=== PATIENT | female | born 1960 | race Caucasian/White ===

== ENCOUNTER 2023-02-24 15:30 | Emergency (ER) | payer SELFPAY ==
[2023-02-24 16:23] VITALS: BP 160/92; PULSE 102; RESP 18; O2SAT 96; BMI 38.9
--- NOTE | 2023-02-24 16:37 | XRR_ITS ---
PROCEDURE INFORMATION: Exam: XR Right Knee Exam date and time: 02/24/2023 4:44 PM Age: 62 years old Clinical indication: Pain; Knee; Right; Additional info: Pain/injury TECHNIQUE: Imaging protocol: Radiologic exam of the right knee. Views: 3 views. COMPARISON: No relevant prior studies available. FINDINGS: Bones/joints: No fracture or dislocation. Mild degenerative change with mild medial joint space narrowing and small tricompartment osteophytes. Soft tissues: Moderate joint effusion. XR/XR knee RT 3V* [id number] IMPRESSION: Mild degenerative changes and moderate nonspecific joint effusion.
--- NOTE | 2023-02-24 16:38 | W.ED.LOWEXIN ---
HPI - Extremity Injury (Lower) General: Chief Complaint: Extremity Injury, Lower Stated Complaint: right knee injury Time Seen by Provider: 02/24/23 16:36 Source: patient Mode of arrival: ambulatory Limitations: no limitations History of Present Illness: Patient is a 62-year-old female presents to ED today for evaluation of right knee pain. Patient states several weeks ago she accidentally struck the knee on a rock and states she has had pain since. She has continued to be ambulatory with the help of her cane. She has not noticed any significant swelling or bruising to the joint. Denies calf pain. No redness or warmth to the joint. She has no other complaints or injuries at this time. MD complaint: knee injury Injury: Right: knee Type of Injury: blunt Severity: moderate Relieving factors: immobilization Exacerbating factors: weight bearing, movement and palpation Context: direct blow Associated symptoms: Reports no associated symptoms Other symptoms: none Review of Systems Card: Denies: chest pain Resp: Denies: dyspnea Musc: Reports: joint pain (R knee); Denies: neck pain, back pain, extremity pain, extremity swelling, joint swelling, joint redness, joint warmth or limited range of motion Neuro: Denies: numbness in extremities or sensory changes Physical Exam Const: COMMON NORMALS: no acute distress, no limitations, alert and well nourished Extremity: COMMON NORMALS: normal to inspection, full ROM, capillary refill normal, no joint enlargement, no clubbing, cyanosis or edema, no calf tenderness and no pedal edema GENERAL: Yes normal exam except as noted RIGHT LOWER EXTREMITY: Yes knee joint (anterior knee TTP) Right knee: Yes ROM (normal) and Yes neurovascular exam (normal) Neuro: SENSORIUM/ORIENTATION: Yes alert Course Vital Signs: Vital signs: Vital Signs Pulse Rate 102 H 02/24/23 16:23 Respiratory Rate 18 02/24/23 16:23 Blood Pressure 160/92 02/24/23 16:23 Pulse Oximetry 96 02/24/23 16:23 Oxygen Delivery Me thod Room Air 02/24/23 16:23 MDM - Extremity Injury (Lower) Medical Decision Making XR negative. Recommend PCP follow up for continued pain. Lab Data Radiology Impressions Knee X-Ray 02/24/23 16:37 IMPRESSION: Mild degenerative changes and moderate nonspecific joint effusion. All radiology interpretation(s) finalized by discharge Discharge Plan Discharge Patient Disposition: Home Clinical Impression: Pain in right knee Qualifiers: Chronicity: acute Qualified Code(s): M25.561 - Pain in right knee Condition: Stable Discharge Orders: Discharge ED (Routine); Ordered 02/24/23 Ordered By: Cheryl Rg Coding Level of Care Code ED Chief Sustainability Officer for Mela Gomez
== END 2023-02-24 17:33 | disposition home or self-care (01) ==
PROVIDERS: Emergency Provider Physician Assistant
DX: M25.561 Pain in right knee (principal)
CPT/HCPCS: 73562; 99283

== ENCOUNTER 2025-01-10 13:45 | Outpatient (CLI) | payer MEDICAID, SELFPAY ==
--- NOTE | 2025-01-10 13:50 | US_ITS ---
WS: [id number] DIAGNOSTIC BILATERAL DIGITAL BREAST TOMOSYNTHESIS MAMMOGRAPHY WITH CAD RIGHT breast ultrasound, limited HISTORY: LUMP OF R BREAST x 3 COMPARISON: None available. TECHNIQUE: Bilateral craniocaudad, mediolateral oblique, and mediolateral views are submitted with tomosynthesis and SM. Spot compression RIGHT CC and MLO. Computer aided detection utilized. Breast composition: The breasts are almost entirely fatty. There are 3 triangular markers placed over the anterior RIGHT breast in the area of concern. Associated with one of the markers which is along the lateral superior breast is thin wall low-attenuation mass measuring 1.2 x 0.5 cm. There are few benign calcifications within each breast. No suspicious masses or areas of distortion. RIGHT breast ultrasound, limited. At 12:00, 7 cm from the nipple is a hypoechoic mass with thick rim. The cystic component centrally measures 0.8 x 0.7 x 0.4 cm. Suspect this is the area concerning for oil cyst by mammography. Most consistent with fat necrosis with central liquefication of fat. No increased vascularity. No abnormalities are noted within the RIGHT breast at 10:00 or 1:00. US/US breast RT limited* [id number] IMPRESSION: BI-RADS: 2 - Benign. FOLLOW UP: 1 Year Follow-up Palpable area in the RIGHT breast at 12:00 corresponds to a hypoechoic mass. Th is is most consistent with that area of fat necrosis, may be from prior trauma.
== END 2025-01-10 13:46 | disposition home or self-care (01) ==
LOC: RAD 13:47
PROVIDERS: PCP Nurse Practitioner Family; Visit Provider Nurse Practitioner Family
DX: N63.41 Unspecified lump in right breast, subareolar (principal); N64.1 Fat necrosis of breast
CPT/HCPCS: 76642; 77062; G0279

== ENCOUNTER 2025-02-02 09:59 | Day surgery (SDC) | payer MEDICAID, SELFPAY ==
[2025-02-02 10:18] VITALS: BP 175/109; PULSE 96; RESP 18; TEMP 36.2; O2SAT 95; BMI 45.5
--- NOTE | 2025-02-02 10:34 | P.HPUD_ITS ---
Surgery/Procedure H&P Update DATE OF PROCEDURE: February 02, 2025 DATE H&P PERFORMED: 01/10/25 H&P UPDATE INFORMATION: I have reviewed H&P completed within last 30 days, I have examined patient prior to procedure, No changes to prior documentation, H&P is in [facility] EMR on date indicated and Risks and benefits of the procedure reviewed PLANNED PROCEDURE: Operation Date: 02/02/25 11:55 Proposed Procedures p EGD EGD with Biopsy [id number] G0121 Z12.11 K21.9(Not Applicable) - Tj Ge MD s Colonoscopy(Not Applicable) - Tj Ge MD
--- NOTE | 2025-02-02 10:43 | ANES.PREANE2 ---
Pre-Anesthetic Assessment Height/Weight: Height 1.57 m Weight 112.945 kg Temp Pulse Resp BP Pulse Ox O2 Del Method 97.1 F L 96 18 175/109 95 Room Air 02/02/25 10:18 02/02/25 10:18 02/02/25 10:18 02/02/25 10:18 02/02/25 10:18 02/02/25 10:18 Preop Diagnosis: GERD, Screen Operation Date: 02/02/25 11:55 Proposed Procedures p EGD EGD with Biopsy [id number] G0121 Z12.11 K21.9(Not Applicable) - Tj Ge MD s Colonoscopy(Not Applicable) - Tj Ge MD Familial anesthetic complications: none Was Beta Elizabet taken within 24 hours: N/A Was Clonidine taken within 24 hours: N/A Last intake: Intake Last Liquid Date 02/01/25 Last Liquid Time 22:00 Last Solid Date 01/31/25 Last Solid Time 17:00 Social No alcohol and No tobacco Exam alert, oriented x 3, clear to auscultation bilaterally and regular rate & rhythm Airway Submandibular: within normal limits Cervical ROM: within normal limits Mallampati: Class II Comments: Comments: Multiple missing, chipped, poor dentition. Pulmonary None reported CV/HEM Hypertension PFO, stable, has had anesthesia wihtout issues multiple times. None reported Hepatic None reported GI Gastroesophageal Reflux Disease Metabolic Diabetes Mellitus and Morbid Obesity [facility] None reported Neuropsych None reported Anesthetic Plan ASA status: 2 Anesthesia: MAC Risk of > 500 ml blood loss (7ml/kg in children): No Medications/Allergies Home Medications ?Medication ?Instructions ?Recorded ?Confirmed ?Last Taken ?Type chlorthalidone 25 mg tablet 25 mg PO DAILY 01/10/25 01/30/25 02/01/25 History cholecalciferol (vitamin D3) 1 tab PO DAILY 01/10/25 01/30/25 02/01/25 History losartan 50 mg tablet 50 mg PO DAILY 01/10/25 01/30/25 02/01/25 History mecobalamin (vitamin B12) 1 dose IM .WEEKLY 01/10/25 01/30/25 02/01/25 History metformin 500 mg tablet,extended 500 mg PO BID 01/10/25 01/30/25 02/01/25 History release 24 hr Allergies Allergy/AdvReac Type Severity Reaction Status Date / Time lisinopril Allergy Severe Unknown Verified 01/30/25 08:55 codeine Allergy ALGY-Difficulty Verified 01/30/25 08:55 Breathing morphine Allergy ALGY-Swell Verified 01/30/25 08:55 Lip/Tongue/Throat Sulfa (Sulfonamide Allergy ALGY-Difficulty Verified 01/30/25 08:55 Antibiotics) Breathing Current Medications Generic Name Dose Route Start Last Admin Trade Name Freq PRN Reason Stop Dose Admin Sodium Chloride 1,000 mls @ 15 mls/hr 02/02/25 10:08 02/02/25 10:28 Sodium Chloride 0.9% IV 02/03/25 10:07 15 mls/hr .Q24H PRN Administration COLONOSCOPY FLUIDS PFSH Anesthesia Social History Smoking and tobacco/nicotine status: never used tobacco/nicotine
[2025-02-02 11:29] VITALS: BP 121/88; PULSE 90; RESP 17; TEMP 36.1; O2SAT 96
[2025-02-02 11:43] VITALS: BP 146/75; PULSE 84; RESP 16; O2SAT 96
== END 2025-02-02 12:30 | disposition home or self-care (01) ==
PROVIDERS: PCP Nurse Practitioner Family; Visit Provider Surgery
PROC: 0DJ08ZZ Inspection of Upper Intestinal Tract, Via Natural or Artificial Opening Endoscopic (ICD-10-PCS; principal; 2025-02-02 11:55)
PROC: 0DJD8ZZ Inspection of Lower Intestinal Tract, Via Natural or Artificial Opening Endoscopic (ICD-10-PCS; CPT 45378; 2025-02-02 11:55)
DX: Z12.11 Encounter for screening for malignant neoplasm of colon (principal); D12.3 Benign neoplasm of transverse colon; K29.50 Unspecified chronic gastritis without bleeding; K21.00 Gastro-esophageal reflux disease with esophagitis, without bleeding; I10 Essential (primary) hypertension; K21.9 Gastro-esophageal reflux disease without esophagitis; E11.9 Type 2 diabetes mellitus without complications; E66.01 Morbid (severe) obesity due to excess calories; Z68.42 Body mass index [BMI] 45.0-49.9, adult; Z79.84 Long term (current) use of oral hypoglycemic drugs
CPT/HCPCS: 36416; 43239; 45380; 82962; 88305; J2704; J7030; J9999